=== PATIENT | male | born 1945 | race Native Hawaiian/Other Pacific Islander ===

== ENCOUNTER 2019-04-18 08:30 | Outpatient (CLI) | payer OTHER ==
[~2019-04-18] VITALS: Ht 124.5 cm; Wt 45.4 kg
== END 2019-04-18 23:27 | disposition home or self-care (01) ==
LOC: NM 08:30
DX: R09.89 Other specified symptoms and signs involving the circulatory and respiratory systems (principal); R07.89 Other chest pain
CPT/HCPCS: A9500; J2785

== ENCOUNTER 2020-01-16 08:01 | Outpatient (CLI) | payer OTHER | END 2020-01-16 14:13 | disposition home or self-care (01) | LOC: CT 08:01 | PROVIDERS: ATTEND Surgery Vascular Surgery | DX: I65.23 Occlusion and stenosis of bilateral carotid arteries (principal) | CPT/HCPCS: 36415; 82565; 84520; Q9963 ==

== ENCOUNTER 2020-08-26 07:49 | Outpatient (CLI) | payer OTHER, MEDICARE | END 2020-08-26 21:03 | disposition home or self-care (01) | LOC: US 07:49 | PROVIDERS: ATTEND Internal Medicine Gastroenterology | DX: B18.1 Chronic viral hepatitis B without delta-agent (principal); K76.89 Other specified diseases of liver ==

== ENCOUNTER 2023-04-07 11:12 | Outpatient (CLI) | payer OTHER | END 2023-04-07 19:51 | disposition home or self-care (01) | LOC: RESP 11:12 | PROVIDERS: ATTEND Internal Medicine | DX: R42 Dizziness and giddiness (principal); R53.83 Other fatigue; I95.9 Hypotension, unspecified ==